=== PATIENT | male | born 1945 | race Caucasian/White ===

== ENCOUNTER 2016-05-02 05:21 | Day surgery (SDC) | payer MEDICARE, OTHER ==
[~2016-05-02] VITALS: Ht 182.9 cm; Wt 107.5 kg
[2016-05-02] VITALS (7 sets, daily range): BP systolic 114–147; BP diastolic 60–77; PULSE 72–80; TEMP 97.2
[2016-05-02] MEDS ORDERED: PRINIVIL20 MG PO (06:29)
[2016-05-02] MEDS ORDERED: NORVASC 5MG5 MG/TAB PO (06:29)
[2016-05-02] MEDS ORDERED: HCTZ 25MG TAB25 MG PO (06:29)
[2016-05-02] MEDS ORDERED: ZYLOPRIM 300MG300 MG PO (06:30)
[2016-05-02] MEDS ORDERED: PRILOSEC 20MG20 MG PO (06:30)
[2016-05-02] MEDS ORDERED: LIPITOR 80MG80 MG PO (06:31)
[2016-05-02] MEDS ORDERED: PROSCAR 5MG5 MG PO (06:31)
[2016-05-02] MEDS ORDERED: INDOCIN 25MG CA25 MG PO (06:32)
[2016-05-02] MEDS ORDERED: NITROSTAT0.4 MG/TAB SL (06:32)
[2016-05-02] MEDS ORDERED: ASPIRIN 81M81 MG/TA2 PO (06:33)
[2016-05-02] MEDS ORDERED: MEGA RED PO (06:34)
[2016-05-02] MEDS ORDERED: COMPLETE SENIOR1 TA1 PO (06:34)
[2016-05-02] MEDS ORDERED: VITAMINC1000TA PO (06:34)
[2016-05-02] MEDS ORDERED: B-121000 MCG PO (06:35)
[2016-05-02] MEDS ORDERED: NORCO 325 MG-51 TAB PO (09:17)
[2016-05-02] MEDS ORDERED: ZOFRAN ODT4 MG PO (09:18)
== END 2016-05-02 11:20 | disposition home or self-care (01) ==
LOC: SDCO 05:21
DX: K40.90 Unilateral inguinal hernia, without obstruction or gangrene, not specified as recurrent (principal); I10 Essential (primary) hypertension; E78.5 Hyperlipidemia, unspecified; Z95.1 Presence of aortocoronary bypass graft
CPT/HCPCS: C1781; J0690; J1100; J2250; J2704; J3010; J7120

== ENCOUNTER → 2019-01-13 | Outpatient (CLI) | payer MEDICARE, OTHER ==
[~2019-01-13] VITALS: Ht 182.9 cm; Wt 95.0 kg
[2019-01-13] VITALS (9 sets, daily range): BP systolic 124–166; BP diastolic 76–91; PULSE 64–74
[~2019-01-13] MED LIST: ASPIRIN 81M81 MG/TA2 PO; B-121000 MCG PO; CRESTOR40 MG PO; GLUCOPHAGE500 MG/TAB PO; HCTZ 25MG TAB25 MG PO; INDOCIN 25MG CA25 MG PO; LIPITOR 80MG80 MG PO; MEGA RED PO; MULTIVITAMIN SEN PO; NITROSTAT0.4 MG/TAB SL; NORCO 325 MG-51 TAB PO; NORVASC 5MG5 MG/TAB PO; PRILOSEC 20MG20 MG PO; PRINIVIL20 MG PO; PRINIVIL40 MG PO; PROSCAR 5MG5 MG PO; SYNTHROID0.088 MG/T PO; VITAMINC1000TA PO; ZOFRAN ODT4 MG PO; ZYLOPRIM 300MG300 MG PO
--- NOTE | 2019-01-13 10:35 | NUR ---
pt to ct per ambulation, monitors applied and o2 on at 2l/nc. Pt positioned in supine position on table.
--- NOTE | 2019-01-13 10:50 | NUR ---
Dr Stubbs into talk with pt regarding procedure.
--- NOTE | 2019-01-13 10:55 | NUR ---
Specimen obtained by Dr Stubbs and placed in specimen cup. Specimen labeled.
== END ==
LOC: COL.RAD 09:51
DX: K63.89 Other specified diseases of intestine (principal)
CPT/HCPCS: 32109

== ENCOUNTER → 2019-07-15 | Outpatient (CLI) | payer MEDICARE | LOC: COL.RAD 11:19 | DX: Z01.812 Encounter for preprocedural laboratory examination (principal); Q43.8 Other specified congenital malformations of intestine; K44.9 Diaphragmatic hernia without obstruction or gangrene; N20.0 Calculus of kidney; Z90.49 Acquired absence of other specified parts of digestive tract; Z98.890 Other specified postprocedural states ==

== ENCOUNTER 2019-07-30 12:59 | Inpatient (IN) | payer MEDICARE ==
[~2019-07-30] VITALS: Ht 182.9 cm; Wt 92.6 kg
[2019-10-05] VITALS (11 sets, daily range): BP systolic 134–156; BP diastolic 67–74; PULSE 63–85; TEMP 97.2–97.5
[2019-10-05] MEDS ORDERED: HCTZ 25MG TAB25 MG PO (11:19)
[2019-10-05] MEDS ORDERED: PRINIVIL40 MG PO (11:19)
[2019-10-05] MEDS ORDERED: NORVASC 5MG5 MG/TAB PO (11:19)
[2019-10-05] MEDS ORDERED: PRIL40 PO (11:20)
[2019-10-05] MEDS ORDERED: ZYLOPRIM 300MG300 MG PO (11:20)
[2019-10-05] MEDS ORDERED: CRESTOR40 MG PO (11:20)
[2019-10-05] MEDS ORDERED: ASPIRIN 81M81 MG/TA2 PO (11:21)
[2019-10-05] MEDS ORDERED: NITROSTAT0.4 MG/TAB SL (11:21)
[2019-10-05] MEDS ORDERED: GLUCOPHAGE500 MG/TAB PO (11:21)
[2019-10-05] MEDS ORDERED: MEGA RED PO (11:22)
[2019-10-05] MEDS ORDERED: VITAMINC1000TA PO (11:22)
[2019-10-05] MEDS ORDERED: LEVOXYL0.088 MG PO (11:23)
[2019-10-05] MEDS ORDERED: B COMPLEX & B121 TAB PO (11:23)
[2019-10-05] MEDS ORDERED: CENTRUM SILVER CHEW PO (11:23)
--- NOTE | 2019-10-05 11:44 | NUR ---
DR CHERY AND DR WISE INTO TALK WITH PATIENT
--- NOTE | 2019-10-05 16:03 | NUR ---
Patient up from OR. Alert and oriented x 3. Assessment complete. Lap sites x 5 with edges well approximated. States pain 8/10 to abd, medications given per orders. Baker to dependent drainage. Post op VSS. Post op fluids infusing per orders. Denies further needs at this time.
--- NOTE | 2019-10-05 18:29 | NUR ---
Patient up to recliner, States mild discomfort to abd. Denies further needs at this time.
--- NOTE | 2019-10-05 18:42 | NUR ---
Will report off to nanny caregiver.
--- NOTE | 2019-10-05 20:00 | NUR ---
Pt. sitting up in chair at this time. Pt. is A&OX3, assessment complete. INT to lt. wrist patent. IV site to rt. hand patent with fluids infusing per orders. Abd. lap sites x5 CDI with banda set. Pt. denies pain or other needs, call light within reach.
[2019-10-06 04:27] VITALS: BP 127/61; PULSE 64; TEMP 97.5
[2019-10-06 06:38] LABS: BASO % 0.2 % (0.0-2.0); GRAN # 5.4 (1.4-6.5); GRAN % 84.8 % (42.2-75.2); HEMATOCRIT 37.9 % (42.0-52.0); HEMOGLOBIN 13.1 g/dl (13.5-18.0); LYMPH # 0.7 (1.2-3.4); LYMPH % 10.9 % (20.0-51.0); MEAN CELL VOLUME 88 fl (80.0-100.0); MEAN CORPUSCULAR HEMOGLOBIN 31 pg (27.0-31.0); MEAN CORPUSCULAR HGB CONC 35 g/dl (33.0-37.0); MEAN PLATELET VOLUME 12.3 fl (7.4-10.4); MONO # 0.2 (0.1-0.6); MONO % 3.6 % (1.7-9.3); PLATELET COUNT 150 K/mm3 (130-400); RED BLOOD COUNT 4.29 M/mm3 (4.20-5.60); REDCELL DISTRIBUTION WIDTH-CV 13.1 % (11.5-14.5)
[2019-10-06 06:50] LABS: CALCIUM 9.1 mg/dL (8.4-10.2); CREATININE, serum 0.63 (0.66-1.25); MAGNESIUM 1.8 mg/dL (1.6-2.3); PHOSPHOROUS 3.5 mg/dL (2.5-4.5); POTASSIUM 4.3 mmol/L (3.4-5.0)
[2019-10-06 08:10] VITALS: BP 142/60; PULSE 67; TEMP 98.4
--- NOTE | 2019-10-06 10:07 | NUR ---
Initial visit; Patient thanked Hose Tubing Backer for looking in on him and offering Spiritual Care.
--- NOTE | 2019-10-06 11:14 | NUR ---
Dr Nevarez here to see patient.
[2019-10-06 11:40] VITALS: BP 138/61; PULSE 60; TEMP 97.5
--- NOTE | 2019-10-06 12:01 | NUR ---
Dr. Nevarez attempted reaching Rosa Elena by phone during rounding. Left Message on her phone.
[2019-10-06 16:44] VITALS: BP 116/86; PULSE 61; TEMP 98.5
[2019-10-06 19:17] VITALS: BP 126/62; PULSE 60; TEMP 98.8
--- NOTE | 2019-10-06 20:45 | NUR ---
Pt. sitting up in bed Pt. is A&OX3, assessment complete. INT to rt. hand patent. Abd. incisions cdi. Pt. denies pain or other needs, call light within reach.
[2019-10-06 23:32] VITALS: BP 133/65; PULSE 54; TEMP 97.7
[2019-10-07 05:04] VITALS: BP 142/70; PULSE 58; TEMP 97.4
[2019-10-07 07:39] VITALS: BP 128/64; PULSE 60; TEMP 97.5
[2019-10-07] MEDS ORDERED: ROXICODONE 55 MG/TAB PO (08:45)
[2019-10-07] MEDS ORDERED: ULTRAM 50MG TAB50 MG PO (08:45)
[2019-10-07] MEDS ORDERED: COLACE 100100 MG/CAP PO (08:46)
[2019-10-07] MEDS ORDERED: NEURONTIN100 MG/CAP PO (08:46)
--- NOTE | 2019-10-07 08:46 | NUR ---
Dr Nevarez here to see patient.
[2019-10-07 08:53] LABS: BASO % 0.4 % (0.0-2.0); EOS % 0.4 % (0-4.0); GRAN % 72.2 % (42.2-75.2); HEMATOCRIT 38.4 % (42.0-52.0); LYMPH # 1.2 (1.2-3.4); MEAN CELL VOLUME 90 fl (80.0-100.0); MEAN CORPUSCULAR HEMOGLOBIN 30 pg (27.0-31.0); MEAN CORPUSCULAR HGB CONC 34 g/dl (33.0-37.0); MEAN PLATELET VOLUME 11.8 fl (7.4-10.4); MONO # 0.3 (0.1-0.6); MONO % 5.8 % (1.7-9.3); PLATELET COUNT 151 K/mm3 (130-400); RED BLOOD COUNT 4.29 M/mm3 (4.20-5.60); REDCELL DISTRIBUTION WIDTH-CV 13.4 % (11.5-14.5)
[2019-10-07 09:04] LABS: ALBUMIN 3.8 gm/dL (3.5-5.0); CALCIUM 8.9 mg/dL (8.4-10.2); CREATININE, serum 0.71 (0.66-1.25); POTASSIUM 3.4 mmol/L (3.4-5.0)
--- NOTE | 2019-10-07 10:41 | NUR ---
Patient alert and oriented, answers questions appropriately. See assessment. Abdomen soft, non tender, non distended. Bowel sounds active x4 quads. +Bowel movement, +Flatus. Abdomen lap sites with edges well approximated, no redness or drainage noted. No c/o at this time.
[2019-10-07 12:17] VITALS: BP 118/74; PULSE 60; TEMP 98
--- NOTE | 2019-10-07 13:04 | NUR ---
Coating Operator met with the patient to complete initial intake. The patient lives in [place] with his , Rosa Elena. The patient denies DME use and is independent with ADLs. The patient's PCP is Dr. Farzana nicolas and patient receives medications from [facility] in [place]. The patient does not have advanced directives. The patient plans to return home and has no concerns about discharge. There are no additional needs at this.
--- NOTE | 2019-10-07 14:03 | NUR ---
Discharge instructions reveiwed with patient, verbalized understanding. Discharged ambulatory to auto/home with family at 1400.
== END 2019-10-07 14:00 | disposition home or self-care (01) | DRG 330 ==
LOC: INPTSU 10-05 10:22 → SURG 10-05 10:22
PROVIDERS: Urology; ADMIT Surgery
PROC: 0DBH4ZZ Excision of Cecum, Percutaneous Endoscopic Approach (ICD-10-PCS; principal; 2019-10-05 12:30)
PROC: 8E0W4CZ Robotic Assisted Procedure of Trunk Region, Percutaneous Endoscopic Approach (ICD-10-PCS; 2019-10-05 12:30)
DX: Q43.8 Other specified congenital malformations of intestine (principal); E87.1 Hypo-osmolality and hyponatremia; D64.9 Anemia, unspecified; E83.39 Other disorders of phosphorus metabolism
CPT/HCPCS: A4314; J0330; J0690; J1100; J2250; J2405; J2704; J2795; J3010; J7030; J7120

== ENCOUNTER → 2019-09-29 | Outpatient (CLI) | payer MEDICARE ==
[~2019-09-29] MED LIST changes: +B COMPLEX & B121 TAB PO; +CENTRUM SILVER CHEW PO; +COLACE 100100 MG/CAP PO; +LEVOXYL0.088 MG PO; +NEURONTIN100 MG/CAP PO; +PRIL40 PO; +ROXICODONE 55 MG/TAB PO; +ULTRAM 50MG TAB50 MG PO
== END ==
LOC: COL.LAB 08:00
DX: Z20.828 Contact with and (suspected) exposure to other viral communicable diseases (principal)

== ENCOUNTER → 2022-05-07 | Outpatient (CLI) | payer MEDICARE ==
[~2022-05-07] MED LIST changes: +CINNAMON500 MG PO; +MAG-OX 400400 MG/TAB PO; +MEGARED OMEGA-1 EAC4 PO; +MULTI VITAMINS1 TAB PO; +VITAMIN B12 1541 TAB PO
== END ==
LOC: COL.RAD 11:11
DX: D11.0 Benign neoplasm of parotid gland (principal); D47.2 Monoclonal gammopathy